=== PATIENT | male | born 1970 | race Caucasian/White ===

== ENCOUNTER 2018-08-08 12:54 | Day surgery (SDC) | payer OTHER ==
[2018-08-08] MEDS ORDERED: LIDOCAINE 2% (SDV) 5 ML INJ (13:11)
[2018-08-08] MEDS ORDERED: PROPOFOL 20 ML (13:11)
[2018-08-08] MEDS ORDERED: MIDAZOLAM 1 MG/ML 2 ML INJ (14:21)
== END 2018-08-08 15:12 | disposition home or self-care (01) ==
LOC: GIL 12:54
DX: R10.13 Epigastric pain (principal); Z53.9 Procedure and treatment not carried out, unspecified reason
CPT/HCPCS: J2250